=== PATIENT | male | born 1990 | race Caucasian/White ===

== ENCOUNTER 2018-06-20 15:14 | Outpatient (CLI) | payer OTHER ==
--- NOTE | 2018-06-20 15:53 | ULT ---
LEFT LOWER EXTREMITY VENOUS ULTRASOUND: HISTORY: Left lower extremity pain and edema. TECHNIQUE: Multiplanar, ashraf scale, and color Doppler images were obtained in a left lower extremity venous ultr asound. Spectral analysis of the Doppler waveforms was performed. FINDINGS: The left common femoral vein, profunda femoral vein, superficial femoral vein, and popliteal vein are normal in appearance without visible thrombus. These vessels demonstrate normal compression, flow, and augmentation. The posterior tibial vein and greater saphenous vein are also patent. There are superficial varicose veins without thrombus at the area of palpable abnormality in the lowe r calf region. IMPRESSION: 1. No evidence of deep vein thrombosis. 2. Varicose veins at the area of palpable abnormality. POS: [facility]
== END 2018-06-20 15:15 | disposition home or self-care (01) ==
LOC: ULT 15:14
PROVIDERS: ATTEND Family Medicine
DX: R22.42 Localized swelling, mass and lump, left lower limb (principal); I83.92 Asymptomatic varicose veins of left lower extremity